=== PATIENT | male | born 1975 | race African-American/Black ===

== ENCOUNTER 2017-10-19 09:22 | Emergency (ER) | payer OTHER ==
--- NOTE | 2017-10-19 09:37 | EDM.PDOC ---
ED HPI GENERAL MEDICAL PROBLEM - General Chief Complaint: ENT Problem Stated Complaint: COUGH Time Seen by Provider: 10/19/17 09:29 Source of Information: Reports: Patient History Limitations: Reports: No Limitations - History of Present Illness INITIAL COMMENTS - FREE TEXT/NARRATIVE: History of present illness: []Patient has been coughing for 2 days that makes his throat burning and yesterday had to leave work because of weakness. He was exposed to the call from another coworker who is ill. Patient's been taking showers to decrease fevers. He denies any vomiting, diarrhea, abdominal pain, chest pain or shortness of breath. Review of systems: As per history of present illness and below otherwise all systems reviewed and negative. Past medical history: As per history of present illness and as reviewed below otherwise noncontributory. Surgical history: As per history of present illness and as reviewed below otherwise noncontributory. Social history: No reported history of drug or alcohol abuse. Family history: As per history of present illness and as reviewed below otherwise noncontributory. Physical exam: General: Well developed, well nourished in NAD HEENT: Atraumatic, normocephalic, pupils reactive, negative for conjunctival pallor or scleral icterus, mucous membranes moist, throat clear no erythema, no exudate or swelling, neck supple, nontender, trachea midline. Stridor Lungs: Clear to auscultation, breath sounds equal bilaterally, chest nontender. No rhonchi or wheezing Heart: S1S2, regular, negative for clicks, rubs, or JVD. Abdomen: Soft, nondistended, nontender. Negative for masses or hepatosplenomegaly. Negative for costovertebral tenderness. Pelvis: Stable nontender. Genitourinary: Deferred. Rectal: Deferred. Extremities: Atraumatic, negative for cords or calf pain. Neurovascular unremarkable. Neuro: Awake, alert, oriented. Cranial nerves II through XII unremarkable. Cerebellum unremarkable. Motor and sensory unremarkable throughout. Exam nonfocal. Diagnostics: [] Therapeutics: [] Impression: []Viral URI with cough Plan: []Tessalon Perles, Tylenol, Motrin for fever and body aches. Definitive disposition and diagnosis as appropriate pending reevaluation and review of above. throat Pain Score (Numeric/FACES): 7 - Related Data Allergies Allergy/AdvReac Type Severity Reaction Status Date / Time chloroquine Allergy Itching Verified 10/19/17 09:31 Home Meds: Home Meds Bismuth Subsalicylate [Pepto-Bismol] 15 ml PRN 12/09/13 [History] Benzonatate [Tessalon Perle] 100 mg PO TID PRN #20 capsule 10/19/17 [Rx] Past Medical History - Past Health History Medical/Surgical History: Denies Medical/Surgical History Social & Family History - Tobacco Use Smoking Status *Q: Never Smoker Second Hand Smoke Exposure: No - Alcohol Use Days Per Week of Alcohol Use: 0 - Recreational Drug Use Recreational Drug Use: No ED ROS GENERAL - Review of Systems Review Of Systems: See Below (See history of present illness) ED EXAM, GENERAL - Physical Exam Exam: See Below (See history of present illness) Course - Vital Signs Last Recorded V/S: Last Vital Signs Temp 97.8 F 10/19/17 09:31 Pulse 84 10/19/17 09:31 Resp 18 10/19/17 09:31 BP 135/103 H 10/19/17 09:31 Pulse Ox 98 10/19/17 09:31 Departure - Departure Time of Disposition: 09:46 Disposition: Home, Self-Care 01 Condition: Good Clinical Impression: Viral URI with cough - Discharge Information Prescriptions: Benzonatate [Tessalon Perle] 100 mg PO TID PRN #20 capsule PRN Reason: Cough Referrals: PCP,None [Primary Care Provider] - Forms: ED Department Discharge Additional Instructions: The following information is given to patients seen in the emergency department who are being discharged to home. This information is to outline your options for follow-up care. We provide all patients seen in our emergency department with a follow-up referral. The need for follow-up, as well as the timing and circumstances, are variable depending upon the specifics of your emergency department visit. If you don't have a primary care physician on staff, we will provide you with a referral. We always advise you to contact your personal physician following an emergency department visit to inform them of the circumstance of the visit and for follow-up with them and/or the need for any referrals to a consulting specialist. The emergency department will also refer you to a specialist when appropriate. This referral assures that you have the opportunity for follow-up care with a specialist. All of these measure are taken in an effort to provide you with optimal care, which includes your follow-up. Under all circumstances we always encourage you to contact your private physician who remains a resource for coordinating your care. When calling for follow-up care, please make the office aware that this follow-up is from your recent emergency room visit. If for any reason you are refused follow-up, please contact the [facility] Emergency Department at and asked to speak to the emergency department charge nurse. Debbi vang for cough, Tylenol or Motrin for body aches and fevers. Follow up with PMD [facility] [address] [place] [id number]
== END 2017-10-19 10:11 | disposition home or self-care (01) ==
LOC: MW.ED 09:22
DX: J06.9 Acute upper respiratory infection, unspecified (principal); Z79.899 Other long term (current) drug therapy; Z88.8 Allergy status to other drugs, medicaments and biological substances
CPT/HCPCS: 99282; 99283

== ENCOUNTER 2017-10-21 17:13 | Inpatient (IN) | payer SELFPAY ==
[2017-10-21] MEDS ORDERED: Albuterol/Ipratropium 3.0-0.5 MG/3 ML Neb Soln NEB ONE (17:15)
[2017-10-21] MEDS ORDERED: methylPREDNISolone Sodium Succinate 125 MG/2 ML SDV IVPUSH ONE (17:15)
--- NOTE | 2017-10-21 17:25 | EDM.PDOC ---
ED HPI GENERAL MEDICAL PROBLEM - General Chief Complaint: Respiratory Problem Stated Complaint: CHEST PAIN/COUGH TROUBLE BREATHING Time Seen by Provider: 10/21/17 17:24 Source of Information: Reports: Patient - History of Present Illness INITIAL COMMENTS - FREE TEXT/NARRATIVE: HISTORY AND PHYSICAL: History of present illness: [Persistent cough over the last week seen initially by Dr. Moreno sierra Debbi Cavanaugh presents with cough shortness of breath and pain with coughing No fever nausea vomiting chills sweats no headache dizziness or palpitation no bowel or urine symptoms She is able to speak in full sentences without difficulty ] Review of systems: As per history of present illness and below otherwise all systems reviewed and negative. Past medical history: As per history of present illness and as reviewed below otherwise noncontributory. Surgical history: As per history of present illness and as reviewed below otherwise noncontributory. Social history: No reported history of drug or alcohol abuse. Family history: As per history of present illness and as reviewed below otherwise noncontributory. Physical exam: HEENT: Atraumatic, normocephalic, pupils reactive, negative for conjunctival pallor or scleral icterus, mucous membranes moist, throat clear, neck supple, nontender, trachea midline. Lungs: Clear to auscultation, breath sounds equal bilaterally, chest nontender. Posttreatment Heart: S1S2, regular, negative for clicks, rubs, or JVD. Abdomen: Soft, nondistended, nontender. Negative for masses or hepatosplenomegaly. Negative for costovertebral tenderness. Pelvis: Stable nontender. Genitourinary: Deferred. Rectal: Deferred. Extremities: Atraumatic, negative for cords or calf pain. Neurovascular unremarkable. Neuro: Awake, alert, oriented. Cranial nerves II through XII unremarkable. Cerebellum unremarkable. Motor and sensory unremarkable throughout. Exam nonfocal. Diagnostics: [Chest 2 views EKG Sputum culture ] Therapeutics: [Z-Onel 500 mg HFA Medrol Dosepak Rocephin 1 g IV Azithromycin 500 mg by mouth daily #6 no refill 48 hours off work ] Impression: Infiltrate on chest x-ray Suspect early retrocardiac pneumonia Definitive disposition and diagnosis as appropriate pending reevaluation and review of above. pain when coughing Pain Score (Numeric/FACES): 6 - Related Data Allergies Allergy/AdvReac Type Severity Reaction Status Date / Time chloroquine Allergy Itching Verified 10/21/17 17:26 Home Meds: Home Meds Bismuth Subsalicylate [Pepto-Bismol] PO DAILY PRN 12/09/13 [History] Benzonatate [Tessalon Perle] 100 mg PO TID PRN #20 capsule 10/19/17 [Rx] Past Medical History - Past Health History Medical/Surgical History: Denies Medical/Surgical History Social & Family History - Family History Family Medical History: Noncontributory - Tobacco Use Smoking Status *Q: Never Smoker Second Hand Smoke Exposure: No - Caffeine Use Caffeine Use: Reports: None - Alcohol Use Days Per Week of Alcohol Use: 0 - Recreational Drug Use Recreational Drug Use: No ED ROS GENERAL - Review of Systems Review Of Systems: ROS reveals no pertinent complaints other than HPI. ED EXAM, GENERAL - Physical Exam Exam: See Below Course - Vital Signs Last Recorded V/S: Last Vital Signs Temp 101.4 F H 10/21/17 17:22 Pulse 115 H 10/21/17 17:22 Resp 20 10/21/17 17:22 BP 157/86 H 10/21/17 17:22 Pulse Ox 98 10/21/17 17:22 - Orders/Labs/Meds Orders: Active Orders 24 hr Category Date Time Status EKG Documentation Completion [RC] STAT Care 10/21/17 17:15 Active RT Aerosol Therapy [RC] ASDIRECTED Care 10/21/17 17:15 Active Chest 2V [CR] Stat Exams 10/21/17 17:15 Taken Meds: Medications Discontinued Medications Generic Name Dose Route Start Last Admin Trade Name Mariya PRN Reason Stop Dose Admin Albuterol/Ipratropium 3 ml 10/21/17 17:15 10/21/17 17:27 Duoneb 3.0-0.5 Mg/3 Ml NEB 10/21/17 17:16 3 ml ONETIME ONE Administration Methylprednisolone Sodium Succinate 125 mg 10/21/17 17:15 10/21/17 17:35 Solu-Medrol IVPUSH 10/21/17 17:16 125 mg ONETIME ONE Administration Departure - Departure Time of Disposition: 18:12 Disposition: Home, Self-Care 01 Condition: Fair Clinical Impression: Pulmonary infiltrate on chest x-ray - Discharge Information Referrals: PCP,None [Primary Care Provider] - Forms: ED Department Discharge Additional Instructions: Medication as prescribed Return if symptoms persist or worsen Follow-up with primary care in 2 weeks sooner as needed [facility] [address] [place] [id number] The following information is given to patients seen in the emergency department who are being discharged to home. This information is to outline your options for follow-up care. We provide all patients seen in our emergency department with a follow-up referral. The need for follow-up, as well as the timing and circumstances, are variable depending upon the specifics of your emergency department visit. If you don't have a primary care physician on staff, we will provide you with a referral. We always advise you to contact your personal physician following an emergency department visit to inform them of the circumstance of the visit and for follow-up with them and/or the need for any referrals to a consulting specialist. The emergency department will also refer you to a specialist when appropriate. This referral assures that you have the opportunity for follow-up care with a specialist. All of these measure are taken in an effort to provide you with optimal care, which includes your follow-up. Under all circumstances we always encourage you to contact your private physician who remains a resource for coordinating your care. When calling for follow-up care, please make the office aware that this follow-up is from your recent emergency room visit. If for any reason you are refused follow-up, please contact the [facility] emergency department at and asked to speak to the emergency department charge nurse. - My Orders Last 24 Hours: My Active Orders 10/21/17 17:15 EKG Documentation Completion [RC] STAT RT Aerosol Therapy [RC] ASDIRECTED Chest 2V [CR] Stat - Assessment/Plan Last 24 Hours: My Active Orders 10/21/17 17:15 EKG Documentation Completion [RC] STAT RT Aerosol Therapy [RC] ASDIRECTED Chest 2V [CR] Stat
[2017-10-21] MEDS ORDERED: cefTRIAXone 1 GM in Premix Bag 1 BAG IV ONE (18:13)
[2017-10-21] MEDS ORDERED: Sodium Chloride 0.9% 1,000 ML IV ONE (18:13)
[2017-10-21] MEDS ORDERED: Azithromycin 1,000 MG in Sodium Chloride 0.9% 500 ML IV ONE (18:19)
[2017-10-21] MEDS ORDERED: Acetaminophen 325 MG Tab PO ONE (18:32)
[2017-10-21] MEDS ORDERED: Azithromycin 500 MG in Sodium Chloride 0.9% 500 ML IV ONE (18:40)
[2017-10-21 18:46] LABS: CHLORIDE,CL 99 mmol/L (98-107); SODIUM,NA 136 mmol/L (136-148)
[2017-10-21] MEDS ORDERED: Azithromycin 500 MG in Sodium Chloride 0.9% 250 ML IV ONE (19:34)
--- NOTE | 2017-10-21 20:40 | PCM.HP ---
H&P History of Present Illness - General Date of Service: 10/21/17 Admit Problem/Dx: Admission Diagnosis/Problem Admission Diagnosis/Problem Pneumonia Source of Information: Patient, Provider - History of Present Illness Initial Comments - Free Text/Narative: He presented to the ED today with history of cough, fever, shaking chills, nausea, and feeling faint. He was diagnosed with pneumonia clinically whilst in the ED and admission was recommended. pain when coughing Pain Score (Numeric/FACES): 9 back Pain Score (Numeric/FACES): 6 - Related Data Allergies/Adverse Reactions: Allergies Allergy/AdvReac Type Severity Reaction Status Date / Time chloroquine Allergy Itching Verified 10/21/17 17:26 Home Medications: Home Meds Bismuth Subsalicylate [Pepto-Bismol] PO DAILY PRN 12/09/13 [History] Benzonatate [Tessalon Perle] 100 mg PO TID PRN #20 capsule 10/19/17 [Rx] Past Medical History - Past Health History Medical/Surgical History: Denies Medical/Surgical History HEENT History: Reports: None Cardiovascular History: Reports: None Respiratory History: Reports: None Gastrointestinal History: Reports: None Genitourinary History: Reports: None Musculoskeletal History: Reports: None Neurological History: Reports: None Psychiatric History: Reports: None Endocrine/Metabolic History: Reports: None. Denies: Diabetes, Type II Hematologic History: Reports: None Immunologic History: Reports: None Oncologic (Cancer) History: Reports: None Dermatologic History: Reports: None - Infectious Disease History Infectious Disease History: Reports: Measles - Past Surgical History Head Surgeries/Procedures: Reports: None Respiratory Surgical History: Reports: None GI Surgical History: Reports: None Endocrine Surgical History: Reports: None Neurological Surgical History: Reports: None Musculoskeletal Surgical History: Reports: None Social & Family History - Family History Family Medical History: Noncontributory - Tobacco Use Smoking Status *Q: Never Smoker Second Hand Smoke Exposure: No - Caffeine Use Caffeine Use: Reports: Tea - Alcohol Use Days Per Week of Alcohol Use: 0 Alcohol Use Comment: he drinks alcohol about one time per month - Recreational Drug Use Recreational Drug Use: No H&P Review of Systems - Review of Systems: Review Of Systems: See Below General: Reports: Fever, Chills HEENT: Denies: Ear Pain, Eye Pain, Headaches Pulmonary: Reports: Cough, Sputum Cardiovascular: Reports: Other (back pain with coughing) Gastrointestinal: Reports: Nausea. Denies: Abdominal Pain, Black Stool, Bloody Stool, Hematemesis, Hematochezia, Vomiting Genitourinary: Denies: Dysuria, Hematuria Skin: Denies: Jaundice Psychiatric: Denies: Agitation Neurological: Reports: Dizziness. Denies: Seizure Exam - Exam Exam: See Below - Vital Signs Vital Signs: Last Vital Signs Temp 100.9 F H 10/21/17 19:07 Pulse 97 10/21/17 19:07 Resp 18 10/21/17 19:07 BP 127/77 10/21/17 19:07 Pulse Ox 94 L 10/21/17 19:07 Weight: 85.366 kg - Exam General: Alert, Oriented, Cooperative HEENT: Mucosa Moist & [place] Neck: Supple Lungs: Clear to Auscultation, Normal Respiratory Effort Cardiovascular: Regular Rate, Regular Rhythm GI/Abdominal Exam: Soft, Non-Tender (Male) Exam: Deferred Rectal (Males) Exam: Deferred Extremities: No Pedal Edema Neurological: Cranial Nerves Intact, Normal Speech Neuro Extensive - Mental Status: Alert, Oriented x3 Neuro Extensive - Motor, Sensory, Reflexes: No: Facial palsy (L), Facial Palsy ( R), Hemeplagia (R), Hemeplagia (L) Psychiatric: No: Agitated - Patient Data Lab Results Last 24 hrs: Laboratory Results - last 24 hr 10/21/17 Range/Units 19:11 Urine Color YELLOW Urine Appearance CLEAR Urine pH 7.5 (5.0-8.0) Ur Specific [place] 1.010 (1.001-1.035) Urine Protein NEGATIVE (NEGATIVE) mg/dL Urine Glucose (UA) NEGATIVE (NEGATIVE) mg/dL Urine Ketones NEGATIVE (NEGATIVE) mg/dL Urine Occult Blood NEGATIVE (NEGATIVE) Urine Nitrite NEGATIVE (NEGATIVE) Urine Bilirubin NEGATIVE (NEGATIVE) Urine Urobilinogen 0.2 (<2.0) EU/dL Ur Leukocyte Esterase NEGATIVE (NEGATIVE) Urine RBC 0-1 (0-2/HPF) Urine WBC 6-8 (0-5/HPF) Ur Epithelial Cells FEW (NONE-FEW) Urine Bacteria FEW (NEGATIVE) Result Diagrams: 10/21/17 17:25 10/21/17 17:25 *Q Meaningful Use (ADM) - VTE *Q VTE Criteria *Q: - Stroke *Q Stroke Criteria *Q: - AMI *Q AMI Criteria *Q: Problem List Initiated/Reviewed/Updated: Yes Orders Last 24hrs: Active Orders 24 hr Category Date Time Status CULTURE URINE [RM] Stat Lab 10/21/17 20:25 Ordered Azithromycin [Zithromax] 500 mg Med 10/21/17 19:34 Active Sodium Chloride 0.9% [Normal Saline] 250 ml IV ONETIME Medication Orders Azithromycin 500 mg/ Sodium (Chloride) 250 mls @ 125 mls/hr IV ONETIME ONE Stop: 10/21/17 20:39 Last Admin: 10/21/17 19:41 Dose: 125 mls/hr Assessment/Plan Comment:: CXR shows question of RLL infiltrate by my evaluation admit monitor telemetry antibiotics influenza swab Mookie Sifuentes MD
[2017-10-21] MEDS ORDERED: Benzonatate 100 MG Cap PO PRN (20:41)
[2017-10-21] MEDS ORDERED: Bisacodyl 5 MG Tab PO PRN (20:44)
[2017-10-21] MEDS ORDERED: Morphine 4 MG/ML Syringe IVPUSH PRN (20:44)
[2017-10-21] MEDS ORDERED: Temazepam 15 MG Cap PO PRN (20:44)
[2017-10-21] MEDS ORDERED: Acetaminophen 325 MG Tab PO PRN (20:44)
[2017-10-21] MEDS ORDERED: Ondansetron 4 MG/2 ML SDV IVPUSH PRN (20:44)
[2017-10-21] MEDS ORDERED: Albuterol/Ipratropium 3.0-0.5 MG/3 ML Neb Soln NEB PRN (20:48)
[2017-10-21] MEDS: Lactated Ringers 1,000 ML IV SCH (22:37)
[2017-10-22 06:25] LABS: CHLORIDE,CL 104 mmol/L (98-107); SODIUM,NA 138 mmol/L (136-148)
[2017-10-22] MEDS: Lactated Ringers 1,000 ML IV SCH (06:52)
[2017-10-22] MEDS ORDERED: Enoxaparin 40 MG/0.4 ML Syringe SUBCUT SCH (09:00)
--- NOTE | 2017-10-22 10:12 | CR ---
EXAM DATE: 10/21/17 PATIENT'S AGE: 42 Patient: GLO GONSALVES Facility: [place], [place] Site . Site : [id number] Study: XRay Chest [id number] 6:05:11 PM Ordering Physician: Doctor Ritchie Final Report: INDICATION: Productive cough ,congestion ,CP, SOB TECHNIQUE: Chest 2 views. COMPARISON: None. FINDINGS: Cardiovascular and mediastinum: Heart size and vasculature are normal in caliber and appearance. Mediastinum is within normal limits. Lungs and pleural spaces: Lungs are clear. No sign of infiltrate or mass. No sign of pleural effusion. No pneumothorax. Bones and soft tissues: No significant findings. IMPRESSION: Unremarkable chest. Dictated by: Idris Diaz MD @ 10/21/2017 18:41:30 (Electronic Signature) Report Signed by Proxy. IRVIN
--- NOTE | 2017-10-22 13:21 | PCM.DCSUM1 ---
Discharge Summary - Hospital Course Brief History: he was admitted with a clinical pneumonia. - Discharge Data Discharge Date: 10/22/17 Discharge Disposition: Home, Self-Care 01 Condition: Fair - Patient Summary/Data Hospital Course: CXR as read by myself showed a scant RLL infiltrate. However, radiology dept reading showed no acute changes. He was treated with rocephin and azithromycin. His fever and tachycardia resolved and he is feeling much better at discharge. He wants to go home. Impression: clinical pneumonia discharge home off of work until WednesdayOctober 26 levaquin 750 mg daily x seven days; be sure to stop the antibiotics for muscle soreness. - Discharge Plan Home Medications: Home Meds Bismuth Subsalicylate [Pepto-Bismol] PO DAILY PRN 12/09/13 [History] Benzonatate [Tessalon Perle] 100 mg PO TID PRN #20 capsule 10/19/17 [Rx] Forms: ED Department Discharge Referrals: PCP,None [Primary Care Provider] - - Patient Data Vitals - Most Recent: Last Vital Signs Temp 97.3 F 10/22/17 11:46 Pulse 57 L 10/22/17 11:46 Resp 20 10/22/17 11:46 BP 135/89 10/22/17 11:46 Pulse Ox 96 10/22/17 11:46 Weight - Most Recent: 85.366 kg I&O - Last 24 hours: Intake & Output 10/21/17 10/22/17 10/22/17 22:59 06:59 14:59 Intake Total 300 Output Total 1100 Balance -800 Lab Results - Last 24 hrs: Laboratory Results - last 24 hr 10/21/17 10/22/17 10/22/17 Range/Units 19:11 05:40 05:40 WBC 12.55 H (4.0-11.0) K/uL RBC 4.71 (4.50-5.90) M/uL Hgb 14.6 (13.0-17.0) g/dL Hct 42.9 (38.0-50.0) % MCV 91.1 (80.0-98.0) fL MCH 31.0 (27.0-32.0) pg MCHC 34.0 (31.0-37.0) g/dL RDW Std Deviation 49.7 (28.0-62.0) fl RDW Coeff of Missy 15 (11.0-15.0) % Plt Count 216 (150-400) K/uL MPV 10.50 (7.40-12.00) fL Neut % (Auto) 87.5 H (48.0-80.0) % Lymph % (Auto) 8.8 L (16.0-40.0) % [place] % (Auto) 3.7 (0.0-15.0) % Eos % (Auto) 0.0 (0.0-7.0) % Baso % (Auto) 0.0 (0.0-1.5) % Neut # (Auto) 11.0 H (1.4-5.7) K/uL Lymph # (Auto) 1.1 (0.6-2.4) K/uL [place] # (Auto) 0.5 (0.0-0.8) K/uL Eos # (Auto) 0.0 (0.0-0.7) K/uL Baso # (Auto) 0.0 (0.0-0.1) K/uL Nucleated RBC % 0.0 /100WBC Nucleated RBCs # 0 K/uL Sodium 138 (136-148) mmol/L Potassium 4.0 (3.5-5.1) mmol/L Chloride 104 (98-107) mmol/L Carbon Dioxide 24.9 (21.0-32.0) mmol/L BUN 11 (7.0-18.0) mg/dL Creatinine 0.9 (0.8-1.3) mg/dL Est Cr Clr Drug Dosing 105.56 mL/min Estimated GFR (MDRD) > 60.0 ml/min Glucose 122 H (74-106) mg/dL Calcium 8.7 (8.5-10.1) mg/dL Magnesium 1.4 L (1.5-2.0) mg/dL Urine Color YELLOW Urine Appearance CLEAR Urine pH 7.5 (5.0-8.0) Ur Specific [place] 1.010 (1.001-1.035) Urine Protein NEGATIVE (NEGATIVE) mg/dL Urine Glucose (UA) NEGATIVE (NEGATIVE) mg/dL Urine Ketones NEGATIVE (NEGATIVE) mg/dL Urine Occult Blood NEGATIVE (NEGATIVE) Urine Nitrite NEGATIVE (NEGATIVE) Urine Bilirubin NEGATIVE (NEGATIVE) Urine Urobilinogen 0.2 (<2.0) EU/dL Ur Leukocyte Esterase NEGATIVE (NEGATIVE) Urine RBC 0-1 (0-2/HPF) Urine WBC 6-8 (0-5/HPF) Ur Epithelial Cells FEW (NONE-FEW) Urine Bacteria FEW (NEGATIVE) Med Orders - Current: Current Medications Acetaminophen (Tylenol) 650 mg PO Q4H PRN PRN Reason: Pain (Mild 1-3)/fever Albuterol/Ipratropium (Duoneb 3.0-0.5 Mg/3 Ml) 3 ml NEB Q4H PRN PRN Reason: Other Benzonatate (Tessalon Perles) 100 mg PO TID PRN PRN Reason: Cough Bisacodyl (Dulcolax) 5 mg PO DAILY PRN PRN Reason: Constipation Enoxaparin Sodium (Lovenox) 40 mg SUBCUT DAILY [facility] Last Admin: 10/22/17 09:36 Dose: 40 mg Azithromycin 500 mg/ Sodium (Chloride) 250 mls @ 250 mls/hr IV Q24H [facility] Ceftriaxone Sodium/Dextrose 1 (gm/ Premix) 50 mls @ 100 mls/hr IV Q24H [facility] Lactated Ringer's (Ringers, Lactated) 1,000 mls @ 125 mls/hr IV ASDIRECTED [facility] Last Admin: 10/22/17 06:52 Dose: 125 mls/hr Morphine Sulfate (Morphine) 4 mg IVPUSH Q2H PRN PRN Reason: Pain (severe 7-10) Stop: 10/22/17 20:45 Ondansetron HCl (Zofran) 4 mg IVPUSH Q4H PRN PRN Reason: Nausea Temazepam (Restoril) 15 mg PO BEDTIME PRN PRN Reason: Sleep Discontinued Medications Acetaminophen (Tylenol) 650 mg PO NOW ONE Stop: 10/21/17 18:33 Last Admin: 10/21/17 18:34 Dose: 650 mg Albuterol/Ipratropium (Duoneb 3.0-0.5 Mg/3 Ml) 3 ml NEB ONETIME ONE Stop: 10/21/17 17:16 Last Admin: 10/21/17 17:27 Dose: 3 ml Ceftriaxone Sodium/Dextrose 1 (gm/ Premix) 50 mls @ 100 mls/hr IV ONETIME ONE Stop: 10/21/17 18:42 Last Admin: 10/21/17 18:30 Dose: 100 mls/hr Sodium Chloride (Normal Saline) 1,000 mls @ 999 mls/hr IV STAT ONE Stop: 10/21/17 19:13 Last Admin: 10/21/17 18:30 Dose: 999 mls/hr Azithromycin 500 mg/ Sodium (Chloride) 500 mls @ 250 mls/hr IV ONETIME ONE Stop: 10/21/17 20:39 Last Admin: 10/21/17 19:36 Dose: Not Given Azithromycin 500 mg/ Sodium (Chloride) 250 mls @ 125 mls/hr IV ONETIME ONE Stop: 10/21/17 20:39 Last Admin: 10/21/17 19:41 Dose: 125 mls/hr Methylprednisolone Sodium Succinate (Solu-Medrol) 125 mg IVPUSH ONETIME ONE Stop: 10/21/17 17:16 Last Admin: 10/21/17 17:35 Dose: 125 mg *Q Meaningful Use (DIS) - VTE *Q VTE Criteria *Q: - Stroke *Q Stroke Criteria *Q: - AMI *Q AMI Criteria *Q:
[2017-10-22] MEDS ORDERED: cefTRIAXone 1 GM in Premix Bag 1 BAG IV SCH (18:00)
[2017-10-22] MEDS ORDERED: Azithromycin 500 MG in Sodium Chloride 0.9% 250 ML IV SCH (19:00)
== END 2017-10-22 15:20 | disposition home or self-care (01) | DRG 195 ==
LOC: MW.ED 17:13 → MW.MS 18:57
PROVIDERS: ADMIT Family Medicine; ATTEND Family Medicine
DX: J18.9 Pneumonia, unspecified organism (principal); Z79.899 Other long term (current) drug therapy; Z88.8 Allergy status to other drugs, medicaments and biological substances
CPT/HCPCS: 36415; 71046; 71046-26; 80048; 80053; 81001; 83735; 84484; 85025; 87040; 87086; 87804; 93005; 94640; 96361; 96365; 96375; 99283; 99285-25; A9270-GY; J0456; J0696; J1650; J2930; J7040; J7120